=== PATIENT | female | born 1955 | race Caucasian/White ===

== ENCOUNTER → 2017-03-25 | Outpatient (CLI) | payer BC ==
--- NOTE | ~2017-03-25 | US77 ---
[facility] A Service of [facility] RADIOLOGY TEXT RESULTS PATIENT: ANTONIO PARRA LOCATION: [facility] [place] : 55 UNIT #: [id number] AGE: [address]: Shayy Ramon MD SEX: F ORDER DR: [id number] [facility]. [place], [place] [address] [id number] O MR#: [id number] Acc #: [id number] NAME: ANTONIO PARRA : 1955 SEX: F STUDY DATE/TIME: 03/25/2017 12:45 UNIT: [facility] [place] ROOM: STUDY DESCRIPTION: US Kidney Bilateral Complete Attending Physician: Shayy Ramon M.D. Referring Physician: Shayy Ramon M.D. Ordering Physician: Shayy Ramon M.D. Primary Care Physician: Shayy Ramon M.D. MEDICAL IMAGING REPORT This report is preliminary unless electronic signature is present EXAM Renal ultrasound. DATE OF EXAM 03/25/2017 HISTORY Abnormal renal function tests on 03/24/2017. Elevated creatinine at 1.27. Abnormally low GFR of 45. FINDINGS The right kidney measures 9.7 cm while the left kidney measures 7.5 cm in longitudinal dimensions. There is no evidence of hydronephrosis or nephrolithiasis. No cystic or solid mass lesions were seen on either kidney and there is normal renal cortical echogenicity. Images of the bladder are normal. IMPRESSION 1. Negative renal ultrasound. 2. Images of the bladder are normal. Dictated by... Wilfredo Andrade M.D. THIS IS AN ELECTRONICALLY VERIFIED REPORT Wilfredo Adnrade M.D. at 03/25/2017 5:11 PM OTILIA/dorys TD: 03/25/2017 16:21 [facility] A Service [facility] RADIOLOGY TEXT RESULTS PATIENT: ANTONIO PARRA LOCATION: [facility] [place] : 55 UNIT #: [id number] AGE: [address]: Shayy Ramon MD SEX: F ORDER DR: JOB #: [id number] MEDICAL IMAGING REPORT Page 1 of 1 COPY
== END | disposition home or self-care (01) ==
LOC: CGUS 12:15
DX: N28.9 Disorder of kidney and ureter, unspecified (principal)
CPT/HCPCS: 76770